=== PATIENT | male | born 1970 | race Caucasian/White ===

== ENCOUNTER 2018-08-06 08:00 | Outpatient (CLI) | payer OTHER ==
[2018-08-06 19:40] LABS: CALCIUM 9.6 mg/dL (8.5-10.3); CREATININE 0.9 mg/dL (0.6-1.2)
[2018-08-06 20:20] LABS: HEMOGLOBIN A1C 1.41 g/dL; HEMOGLOBIN A1C % 10.2 % (4.6-6.2)
== END 2018-08-06 23:59 | disposition home or self-care (01) ==
LOC: LAB.N 08:00
PROVIDERS: ATTEND Physician Assistant Medical
DX: E11.9 Type 2 diabetes mellitus without complications (principal)
CPT/HCPCS: 36415; 80048; 83036

== ENCOUNTER 2018-11-04 10:51 | Outpatient (CLI) | payer OTHER ==
[2018-11-04 12:54] LABS: HEMOGLOBIN A1C 1.07 g/dL; HEMOGLOBIN A1C % 8.7 % (4.6-6.2)
[2018-11-04 13:03] LABS: CALCIUM 9.2 mg/dL (8.5-10.3)
== END 2018-11-04 23:59 | disposition home or self-care (01) ==
LOC: LAB.N 10:51
PROVIDERS: ATTEND Physician Assistant Medical
DX: E11.9 Type 2 diabetes mellitus without complications (principal)
CPT/HCPCS: 36415; 80048; 83036